=== PATIENT | female | born 1985 | race Two or more races ===

== ENCOUNTER 2023-12-23 02:13 | Emergency (ER) | payer OTHER ==
[~2023-12-23] VITALS: Ht 157.5 cm; Wt 59.0 kg
[2023-12-23] MEDS ORDERED: EPINEPHRINE HCL/PF 1 MG/ML AMPUL SUBCUTANEO STA ×2 (02:36→07:14)
[2023-12-23] MEDS ORDERED: DIPHENHYDRAMINE HCL 50 MG/ML VIAL 1ML IV STA ×2 (02:36→07:13)
[2023-12-23] MEDS ORDERED: FAMOTIDINE/PF 20 MG/2 ML VIAL IV PUSH STA ×2 (02:36→07:13)
[2023-12-23] MEDS ORDERED: FAMOTIDINE/PF 20 MG/2 ML VIAL ONE ×2 (02:46→07:59)
[2023-12-23] MEDS ORDERED: DIPHENHYDRAMINE HCL 50 MG/ML VIAL 1ML ONE ×3 (02:46→08:37)
[2023-12-23] MEDS ORDERED: EPINEPHRINE HCL/PF 1 MG/ML AMPUL ONE ×2 (02:46→07:58)
== END 2023-12-23 10:28 | disposition home or self-care (01) ==
LOC: ER 02:15
DX: T78.40XA Allergy, unspecified, initial encounter (principal)